=== PATIENT | female | born 1965 | race American Indian/Alaskan Native ===

== ENCOUNTER 2020-08-28 16:55 | Emergency (ER) | payer BC ==
[2020-08-28] MEDS ORDERED: MORPHINE 4 MG/1 ML INJ IV ONE (17:21)
[2020-08-28] MEDS ORDERED: SODIUM CHLORIDE 0.9% 1000 ML 1,000 ML IV ONE (17:21)
[2020-08-28] MEDS ORDERED: ONDANSETRON 4 MG/2 ML INJ IV ONE (17:22)
[2020-08-28 17:25] VITALS: BP 177/98
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
[2020-08-28 17:40] LABS: Hemoglobin 11.7 gm/dl (10.1-14.3); Mean Corpuscular HGB Conc 33 % (30-34); Mean Corpuscular Volume 83 fl (79-97); Platelet Count 214 K/mm3 (140-440); Red Blood Count 4.24 M/mm3 (3.65-5.03); Red Cell Distribution Width 14.4 % (13.2-15.2)
[2020-08-28 17:46] LABS: Eosinophils % (Auto) 1.7 % (0.0-4.3); Lymphocytes % (Auto) 45.7 % (13.4-35.0); Monocytes % (Auto) 9.4 % (0.0-7.3)
[2020-08-28 17:47] LABS: Eosinophils # (Auto) 0.1 K/mm3 (0.0-0.4); Lymphocytes # (Auto) 3.2 K/mm3 (1.2-5.4); Monocytes # (Auto) 0.7 K/mm3 (0.0-0.8)
[2020-08-28 17:55] LABS: Blood Urea Nitrogen 10 mg/dL (7-17); Calcium 9.4 mg/dL (8.4-10.2); Hemolysis Index 1
[2020-08-28 18:10] LABS: BUN/Creatinine Ratio 17
== END 2020-08-28 19:00 | disposition home or self-care (01) ==
LOC: ED 16:55
DX: T20.10XA Burn of first degree of head, face, and neck, unspecified site, initial encounter (principal); I10 Essential (primary) hypertension; X58.XXXA Exposure to other specified factors, initial encounter; Y93.89 Activity, other specified; Y92.89 Other specified places as the place of occurrence of the external cause; Y99.8 Other external cause status
CPT/HCPCS: 36415; 80048; 85025; 96361; 96374; 96375; 99283; J2270; J2405; J7030